=== PATIENT | female | born 1980 | race Caucasian/White ===

== ENCOUNTER 2020-09-14 08:15 | Observation (INO) ==
[2020-09-14] MEDS ORDERED: LACTATED RINGERS 1,000 ML IV ONE (08:24)
[2020-09-14] MEDS ORDERED: PANTOPRAZOLE 40 MG VIAL IV ONE (08:24)
[2020-09-14] MEDS ORDERED: OCTREOTIDE ACETATE 50 MCG/ML AMPUL IV ONE (08:24)
--- NOTE | 2020-09-14 08:33 | Emergency Department Note ---
HPI General Chief complaint: Bleeding Other Stated complaint: rectal bleeding Time Seen by Provider: 09/14/20 08:18 Source: patient Mode of arrival: ambulatory Limitations: no limitations History of Present Illness HPI Narrative: Narrative: 40 yo F w/ no PMH p/w bleeding for the past few days. She reports 2-3 days of hematemesis described as estefani blood and progressing to coffee grounds today. She has had around 3 episodes daily since onset. She additionally reports melanotic stools, a few episodes daily since yesterday. Bleeding is accompanied by weakness and lightheadedness, which prompted her to present today. She has never had similar episodes, but does endorse a h/o easy bruising, and binge drinking (~12 beers) each day on the weekend. She also notes that her mother required a hysterectomy for heavy vaginal bleeding. She herself has not had any vaginal or gum bleeding, or epistaxis. Related Data Home Medications Medication Instructions Recorded Confirmed No Known Home Meds 09/14/20 09/14/20 Allergies Allergy/AdvReac Type Severity Reaction Status Date / Time No Known Drug Allergies Allergy Verified 09/14/20 08:18 Review of Systems ROS ROS Narrative: Narrative: All systems ED: reviewed and negative except as stated. PFSH Narrative Patient History Narrative: Narrative: Medical/Surgical/Family History All Active Problems Sialoadenitis of submandibular gland (Acute) Pharyngitis (Acute) Ovarian cyst (Acute) Pelvic pain (Acute) Complex cyst of left ovary (Acute) Acute gastrointestinal bleeding (Acute) Acute upper gastrointestinal bleeding (Acute) Alcohol abuse (Acute) Medical History Pharyngitis Sialoadenitis of submandibular gland Family History Other Bleeding Social History Smoking Status: Current every day smoker Alcohol Intake Frequency: 2+ drinks per day (12 pack each day on the weekend) Substance Use: does not use Exam Narrative Narrative: Narrative: General Limitations: no limitations General appearance: Present alert and in no apparent distress Head Head: Present atraumatic and normocephalic Eye Eye: Present EOMI and other (pale conjunctiva) ENT ENT: Present normal oropharynx and mucous membranes moist Chest Chest: Present normal inspection and symmetric chest wall rise Respiratory Respiratory: Present normal lung sounds bilaterally; Absent respiratory distress and wheezes Cardiovascular Cardiovascular: Present normal rhythm, tachycardia, +S1 and +S2 Adbominal Abdominal: Present soft and normal bowel sounds; Absent distention and tenderness Extremities Extremities: Absent pedal edema Neurological Neurological: Present alert and oriented X3 Psychiatric Psychiatric: Present normal affect Skin Skin: Present warm (WNL) and dry Course Vital Signs Vital signs: Vital Signs Temperature 97.4 F 09/14/20 08:16 Pulse Rate 125 H 09/14/20 08:16 Respiratory Rate 16 09/14/20 08:16 Blood Pressure 142/86 09/14/20 08:16 Pulse Oximetry (%) 100 09/14/20 08:16 Temperature 97.7 F 09/14/20 16:00 Pulse Rate 80 09/14/20 16:00 Respiratory Rate 18 09/14/20 16:00 Blood Pressure 111/64 09/14/20 16:00 Pulse Oximetry (%) 99 09/14/20 16:00 MDM MDM Narrative Medical decision making narrative: Narrative: 40 yo F w/ h/o heavy ETOH use, easy bruising, p/w hematemesis and melanotic stools. DDx - hemorrhagic shock, variceal bleeding, gastritis, coagulopathy Pt presented w/ tachycardia, +shock index, but well appearing, w/ no active bleeding, in NAD. I did not feel that a shock state was truly present, but she was at risk. I started Tx immediately w/ 1L LR bolus, protonix, and octreotide. I proceeded w/ a W/U w/ CBC, CMP, coags. She was anemic, but clinically and bas ed on hgb did not require immediate transfusion. She was not coagulopathic based on PT, INR, PTT, but may need further W/U. She did not have ongoing bleeding. However, given her overall presentation, I was concerned for the potential for decompensation, and felt admission for endoscopy was indicated. Based on Hx, PE, and elevated BUN, suspect UGIB. Alcoholic gastritis seems more likely than varices but this will need endoscopy to determine. I d/w Dr Meeks w/ general surgery here, and he planned to admit pt to his service for endoscopy. Lab Data Lab results reviewed: Yes I reviewed the patient's lab results. Result diagrams: 09/14/20 08:39 09/14/20 08:39 Labs: Lab Results 09/14/20 09/14/20 09/14/20 Range/Units 08:39 08:39 08:39 WBC 8.1 (4.5-11.0) K/mcL RBC 2.24 L (4.00-5.20) M/mcL Hgb 8.2 L (12.0-15.0) g/dL Hct 23.6 L (36.0-48.0) % MCV 105.4 H (80.0-100.0) fL MCH 36.6 H (26.0-34.0) pg MCHC 34.7 (31.0-36.0) g/dL RDW 12.9 (11.5-14.5) % Plt Count 157 (140-440) K/mcL MPV 10.6 H (7.4-10.4) fL Neut % (Auto) 70.9 (38.0-78.0) % Lymph % (Auto) 22.6 (15.0-49.0) % Hudspeth % (Auto) 6.0 (1.0-12.0) % Eos % (Auto) 0.1 (0.0-7.0) % Baso % (Auto) 0.4 (0.0-2.0) % Lymph # (Auto) 1.83 (1.50-4.80) K/mcL Hudspeth # (Auto) 0.49 (0.10-0.90) K/mcL Eos # (Auto) 0.01 (0.00-0.70) K/mcL Baso # (Auto) 0.03 (0.00-0.20) K/mcL Absolute Neutrophils 5.75 (1.80-8.00) K/mcL POC PT 12.0 (11.9-14.5) sec PT 13.7 (11.9-14.5) sec POC INR 1.0 (0.8-1.2) INR 1.0 (0.9-1.1) VBG Lactic Acid (0.5-2.0) mmol/L Sodium 134 (133-145) mmol/L Potassium 3.7 (3.3-5.1) mmol/L Chloride 99 (96-108) mmol/L Carbon Dioxide 21 L (22-30) mmol/L Anion Gap 14.0 (8.0-16.0) BUN 41 H (6-20) mg/dL Creatinine 0.6 (0.6-1.1) mg/dL GFR Calculation 112 Glucose 137 H (70-105) mg/dL Calcium 8.0 L (8.6-10.4) mg/dL Total Bilirubin 0.8 (0.1-1.0) mg/dL AST 28 (<32) U/L ALT 33 (<40) U/L Alkaline Phosphatase 43 (39-117) U/L Total Protein 6.5 (5.9-8.4) gm/dL Albumin 3.8 (3.2-5.2) gm/dL Globulin 2.7 (2.2-3.7) gm/dL Albumin/Globulin Ratio 1.4 (1.0-2.3) Lipase 34 (7-60) U/L 09/14/20 Range/Units 08:39 WBC (4.5-11.0) K/mcL RBC (4.00-5.20) M/mcL Hgb (12.0-15.0) g/dL Hct (36.0-48.0) % MCV (80.0-100.0) fL MCH (26.0-34.0) pg MCHC (31.0-36.0) g/dL RDW (11.5-14.5) % Plt Count (140-440) K/mcL MPV (7.4-10.4) fL Neut % (Auto) (38.0-78.0) % Lymph % (Auto) (15.0-49.0) % Hudspeth % (Auto) (1.0-12.0) % Eos % (Auto) (0.0-7.0) % Baso % (Auto) (0.0-2.0) % Lymph # (Auto) (1.50-4.80) K/mcL Hudspeth # (Auto) (0.10-0.90) K/mcL Eos # (Auto) (0.00-0.70) K/mcL Baso # (Auto) (0.00-0.20) K/mcL Absolute Neutrophils (1.80-8.00) K/mcL POC PT (11.9-14.5) sec PT (11.9-14.5) sec POC INR (0.8-1.2) INR (0.9-1.1) VBG Lactic Acid 1.9 (0.5-2.0) mmol/L Sodium (133-145) mmol/L Potassium (3.3-5.1) mmol/L Chloride (96-108) mmol/L Carbon Dioxide (22-30) mmol/L Anion Gap (8.0-16.0) BUN (6-20) mg/dL Creatinine (0.6-1.1) mg/dL GFR Calculation Glucose (70-105) mg/dL Calcium (8.6-10.4) mg/dL Total Bilirubin (0.1-1.0) mg/dL AST (<32) U/L ALT (<40) U/L Alkaline Phosphatase (39-117) U/L Total Protein (5.9-8.4) gm/dL Albumin (3.2-5.2) gm/dL Globulin (2.2-3.7) gm/dL Albumin/Globulin Ratio (1.0-2.3) Lipase (7-60) U/L ED POC Tests ED POC Tests: NARINDER - SARS Antigen Negative HCG POC Results Negative Discharge Plan Patient/Caregiver Discharge Instructions Pt seen by LICENSED HOME INSPECTOR/PA only: No Clinical Impression: Acute gastrointestinal bleeding, Acute upper gastrointestinal bleeding, Alcohol abuse Patient Disposition: Xfer As Inpt ([facility]) Condition: Serious Discharge Date/Time: 09/14/20 12:15
[2020-09-14] MEDS ORDERED: OCTREOTIDE ACETATE 100 MCG/ML VIAL SQ ONE (09:00)
[2020-09-14 10:05] LABS: Basophils # (Auto) 0.03 K/mcL (0.00-0.20); Basophils % (Auto) 0.4 % (0.0-2.0); Eosinophils # (Auto) 0.01 K/mcL (0.00-0.70); Eosinophils % (Auto) 0.1 % (0.0-7.0); Hematocrit 23.6 % (36.0-48.0); Hemoglobin 8.2 g/dL (12.0-15.0); Lymphocytes # (Auto) 1.83 K/mcL (1.50-4.80); Lymphocytes % (Auto) 22.6 % (15.0-49.0); Mean Cell Volume 105.4 fL (80.0-100.0); Mean Corpuscular HGB Conc 34.7 g/dL (31.0-36.0); Mean Platelet Volume 10.6 fL (7.4-10.4); Monocytes # (Auto) 0.49 K/mcL (0.10-0.90); Neutrophils % (Auto) 70.9 % (38.0-78.0); Platelet Count 157 K/mcL (140-440); RBC 2.24 M/mcL (4.00-5.20); Red Cell Distribution Width 12.9 % (11.5-14.5); WBC 8.1 K/mcL (4.5-11.0)
[2020-09-14 10:17] LABS: ALT/SGPT 33 U/L (<40); AST/SGOT 28 U/L (<32); Albumin 3.8 gm/dL (3.2-5.2); Albumin/Globulin Ratio 1.4 (1.0-2.3); Alkaline Phosphatase 43 U/L (39-117); Bilirubin,Total 0.8 mg/dL (0.1-1.0); Blood Urea Nitrogen 41 mg/dL (6-20); Carbon Dioxide 21 mmol/L (22-30); Chloride 99 mmol/L (96-108); Globulin 2.7 gm/dL (2.2-3.7); Glomerular Filtration Rate 112; Glucose 137 mg/dL (70-105)
[2020-09-14 10:36] LABS: Prothrombin Time 13.7 sec (11.9-14.5)
[2020-09-14] MEDS ORDERED: KETAMINE 50 MG/ML ML IV PRN (11:59)
[2020-09-14] MEDS ORDERED: MIDAZOLAM 2 MG/2 ML VIAL IV SCH (12:00)
[2020-09-14] MEDS ORDERED: PROPOFOL 200 MG/20 ML VIAL IV SCH (12:00)
--- NOTE | 2020-09-14 13:06 | General Surg History&Physical ---
HPI History of Present Illness Patient information: Note initiated : 09/14/20 at 1:04 pm Service Date, if different from initiated Date: [] Patient: Rocio Del Real a 40 y/o F admitted on for EGD w/control of bleed, possible biopsies. Chief Complaint: [] Chief complaint: Hematemesis History of present illness: Ms. Del Real is a 40 year old F who presents with 1 day history of pain hematemesis and melanotic stools. She denies any prior history of similar sort of pains or problems. She started this morning with blo elmer emesis. She has no fevers chills nausea or diarrhea. She was seen in the emergency room where she has a decreased hemoglobin and hematocrit. Review of Systems Review of systems: All systems are reviewed, negative other than above PFSH PFSH All Active Problems Sialoadenitis of submandibular gland (Acute) Pharyngitis (Acute) Ovarian cyst (Acute) Pelvic pain (Acute) Complex cyst of left ovary (Acute) Acute gastrointestinal bleeding (Acute) Acute upper gastrointestinal bleeding (Acute) Alcohol abuse (Acute) Medical History Pharyngitis Sialoadenitis of submandibular gland Family History Other Bleeding Social History (Updated 06/28/18 @ 20:12 by Hortencia Felton PA-C) alcohol intake frequency: 2+ drinks per day (12 pack each day on the weekend) substance use type: does not use MEDS/ALLERGIES Home Medications and Allergies Home Medications Medication Instructions Recorded Confirmed Type No Known Home Meds 09/14/20 09/14/20 History Allergies Allergy/AdvReac Type Severity Reaction Status Date / Time No Known Drug Allergies Allergy Verified 09/14/20 08:18 Physical Examination Vital Signs Vital signs: Temp Pulse Resp BP Pulse Ox 97.4 F 93 H 17 120/73 100 09/14/20 11:59 09/14/20 11:59 09/14/20 11:59 09/14/20 11:59 09/14/20 11:59 General physical appearance General physical exam: well developed, well nourished and no distress Eyes Eye exam: PERRL and normal ocular movement ENT ENT exam: normal pinna, normal nares, normal mucosa, no hearing loss and no congestion Head Head exam IM: Present atraumatic and normocephalic Neck Neck exam: no masses, no bruits, trachea midline, no lymphadenopathy and no venous distension Cardiovascular Cardiovascular exam IM: Present normal rate and rhythm Respiratory Respiratory exam: normal expansion, normal respiratory effort, clear to percussion and clear to auscultation Abdomen Abdomen: Present soft, non tender and bowel sounds Hernia: Present none Genitourinary Genitourinary (Female): Present normal external genitalia Rectum Rectum: Present normal sphincter tone, no hemorrhoids, no tenderness, no masses and no bleeding Integumentary Integumentary: Present no rash, no growths and no abnormal pigmentation Neurologic Neurologic: Present normal coordination and normal sensation Musculoskeletal Musculoskeletal: Present normal gait and normal posture Psychiatric Psychiatric: Present oriented to time, oriented to person, oriented to place, speech is normal and memory intact Results Labs Result diagrams: 09/14/20 08:39 09/14/20 08:39 Labs: Abnormal lab results 09/14/20 09/14/20 Range/Units 08:39 08:39 RBC 2.24 L (4.00-5.20) M/mcL Hgb 8.2 L (12.0-15.0) g/dL Hct 23.6 L (36.0-48.0) % MCV 105.4 H (80.0-100.0) fL MCH 36.6 H (26.0-34.0) pg MPV 10.6 H (7.4-10.4) fL Carbon Dioxide 21 L (22-30) mmol/L BUN 41 H (6-20) mg/dL Glucose 137 H (70-105) mg/dL Calcium 8.0 L (8.6-10.4) mg/dL Diabetes panel 09/14/20 Range/Units 08:39 Sodium 134 (133-145) mmol/L Potassium 3.7 (3.3-5.1) mmol/L Chloride 99 (96-108) mmol/L Carbon Dioxide 21 L (22-30) mmol/L BUN 41 H (6-20) mg/dL Creatinine 0.6 (0.6-1.1) mg/dL Glucose 137 H (70-105) mg/dL Calcium 8.0 L (8.6-10.4) mg/dL AST 28 (<32) U/L ALT 33 (<40) U/L Alkaline Phosphatase 43 (39-117) U/L Total Protein 6.5 (5.9-8.4) gm/dL Albumin 3.8 (3.2-5.2) gm/dL Calcium panel 09/14/20 Range/Units 08:39 Calcium 8.0 L (8.6-10.4) mg/dL Albumin 3.8 (3.2-5.2) gm/dL Pituitary panel 09/14/20 Range/Units 08:39 Sodium 134 (133-145) mmol/L Potassium 3.7 (3.3-5.1) mmol/L Chloride 99 (96-108) mmol/L Carbon Dioxide 21 L (22-30) mmol/L BUN 41 H (6-20) mg/dL Creatinine 0.6 (0.6-1.1) mg/dL Glucose 137 H (70-105) mg/dL Calcium 8.0 L (8.6-10.4) mg/dL Adrenal panel 09/14/20 Range/Units 08:39 Sodium 134 (133-145) mmol/L Potassium 3.7 (3.3-5.1) mmol/L Chloride 99 (96-108) mmol/L Carbon Dioxide 21 L (22-30) mmol/L BUN 41 H (6-20) mg/dL Creatinine 0.6 (0.6-1.1) mg/dL Glucose 137 H (70-105) mg/dL Calcium 8.0 L (8.6-10.4) mg/dL Total Bilirubin 0.8 (0.1-1.0) mg/dL AST 28 (<32) U/L ALT 33 (<40) U/L Alkaline Phosphatase 43 (39-117) U/L Total Protein 6.5 (5.9-8.4) gm/dL Albumin 3.8 (3.2-5.2) gm/dL All other labs normal. A/P Assessment and plan (1) Acute gastrointestinal bleeding: Status: Acute Narrative A/P Narrative: This is a pleasant 40-year-old female without prior significant medical history who presents with what appears to be an upper GI bleed. Risk, benefits, alternatives to discussed with her at length including alternatives. She verbalizes understanding and desires to agree. Plan: EGD, observation post EGD based on pending results. Time Spent With Patient Time: Total time spent is greater than 50% in coordination of care (as documented) at patient's floor/unit and/or counseling patient:
[2020-09-14] MEDS ORDERED: ACETAMINOPHEN 325 MG TABLET PO PRN (13:22)
[2020-09-14] MEDS ORDERED: ONDANSETRON 4 MG/2 ML VIAL IV PRN (13:22)
--- NOTE | 2020-09-14 13:22 | EGD Procedure Note ---
EGD Procedure Notes Procedure Information Patient information: Note initiated : 09/14/20 at 1:20 pm Service Date: Patient: Rocio Del Real 40 y/o F admitted on for EGD w/control of bleed, possible biopsies. Pre-op diagnosis general: Upper GI bleed Post-Op Diagnosis general: Same, small antral ulcer, diffuse gastritis Procedure: Esophogogastroduodenoscopy Procedure Narrative: After risk benefits and alternatives to the procedure were discussed with the patient at length she verbalized understanding and desire to continue with the procedure. Patient was taken to endoscopy. Surgical timeout was taken to verify patient and procedure being performed sedation was administered with 2 mg of Versed and 200 mcg of propofol. An adult gastroscope was entered and advanced under direct vision into the second portion of the duodenum. The antrum was fully inspected, the scope was retroflexed in the stomach. Full examination revealed normal duodenum, small antral ulcer, diffuse gastritis. The GE junction was at 35 cm and the esophagus was normal on full exam. Patient tolerated procedure well. Assessment: Diffuse gastritis, small antral ulcer
[2020-09-14] MEDS: 0.9 % SODIUM CHLORIDE 10 ML SYRINGE IV SCH ×2 (15:17→20:27)
[2020-09-14] MEDS: DEXTROSE 5%-1/2NS 1,000 ML IV SCH (16:03)
[2020-09-14] MEDS: DOCUSATE SODIUM 100 MG CAPSULE PO SCH (20:27)
[2020-09-14] MEDS ORDERED: SENNOSIDES 1 TABLET PO SCH (21:00)
[2020-09-15] MEDS: DEXTROSE 5%-1/2NS 1,000 ML IV SCH ×2 (01:21→09:59)
[2020-09-15] MEDS: 0.9 % SODIUM CHLORIDE 10 ML SYRINGE IV SCH (04:46)
[2020-09-15] MEDS: PANTOPRAZOLE 40 MG TABLET PO SCH (07:03)
[2020-09-15 07:24] LABS: Basophils # (Auto) 0.03 K/mcL (0.00-0.20); Basophils % (Auto) 0.5 % (0.0-2.0); Eosinophils # (Auto) 0.05 K/mcL (0.00-0.70); Eosinophils % (Auto) 0.8 % (0.0-7.0); Hematocrit 19.2 % (36.0-48.0); Hemoglobin 6.5 g/dL (12.0-15.0); Lymphocytes # (Auto) 1.95 K/mcL (1.50-4.80); Lymphocytes % (Auto) 31.3 % (15.0-49.0); Mean Cell Volume 105.5 fL (80.0-100.0); Mean Corpuscular HGB Conc 33.9 g/dL (31.0-36.0); Mean Platelet Volume 10.4 fL (7.4-10.4); Monocytes # (Auto) 0.38 K/mcL (0.10-0.90); Monocytes % (Auto) 6.1 % (1.0-12.0); Neutrophils % (Auto) 61.3 % (38.0-78.0); Platelet Count 125 K/mcL (140-440); RBC 1.82 M/mcL (4.00-5.20); Red Cell Distribution Width 13.2 % (11.5-14.5); WBC 6.2 K/mcL (4.5-11.0)
[2020-09-15] MEDS ORDERED: 0.9 % SODIUM CHLORIDE 250 ML IV SCH (08:00)
[2020-09-15] MEDS: DOCUSATE SODIUM 100 MG CAPSULE PO SCH (08:55)
--- NOTE | 2020-09-15 11:14 | General Surgery Progress Note ---
SUBJECTIVE Subjective Patient information: Note initiated : 09/15/20 at 11:12 am Service Date, if different from initiated Date: [] Patient: Rocio Del Real 40 y/o F admitted on 09/14/20 for EGD w/control of bleed, possible biopsies. Chief Complaint: [] Interval history: Hospital day #1 for upper GI bleed. Status post EGD yesterday with diffuse gastritis, patient has been started on an acid treatment. H&H this morning dropped to 6.5. Patient reports feeling less dizzy than when she came in. Constitutional Vitals: Vital Signs Temp Pulse Resp BP Pulse Ox 98.8 F 87 18 87/54 99 09/15/20 07:42 09/15/20 07:42 09/15/20 07:51 09/15/20 07:42 09/15/20 07:42 Period Temp Pulse Resp BP Sys/Chauhan Pulse Ox Last 24 Hr 97.4 F-99.0 F 64-124 12-20 87-140/54-104 98-100 Intake and Output 09/14/20 09/15/20 09/15/20 21:59 05:59 13:59 Intake Total 200 300 Balance 200 300 Weight 165 lb Intake & Output: Intake & Output 09/14/20 09/15/20 09/15/20 21:59 05:59 13:59 Intake Total 200 300 Balance 200 300 Weight 165 lb Intake: Oral 200 300 Other: # Voids 1 3 General appearance: cooperative and no acute distress GI/Abdominal GI/Abdominal exam: Present soft; Absent distended, guarding, rebound and tenderness A/P Narrative A/P Narrative: Patient mated for upper GI bleed, no active bleed found on endoscopy. We will give 1 unit packed RBCs, follow-up with H&H. If stable may be able to be discharged today versus tomorrow. Time Spent With Patient Time: Total time spent is greater than 50% in coordination of care (as documented) at patient's floor/unit and/or counseling patient:
[2020-09-15 19:48] LABS: Hemoglobin 7.3 g/dL (12.0-15.0)
[2020-09-16] MEDS: PANTOPRAZOLE 40 MG TABLET PO SCH (06:44)
[2020-09-16 08:14] LABS: Basophils # (Auto) 0.03 K/mcL (0.00-0.20); Basophils % (Auto) 0.5 % (0.0-2.0); Eosinophils # (Auto) 0.06 K/mcL (0.00-0.70); Hematocrit 22.2 % (36.0-48.0); Hemoglobin 7.6 g/dL (12.0-15.0); Lymphocytes # (Auto) 2.19 K/mcL (1.50-4.80); Lymphocytes % (Auto) 35.2 % (15.0-49.0); Mean Cell Volume 100.5 fL (80.0-100.0); Mean Corpuscular HGB Conc 34.2 g/dL (31.0-36.0); Monocytes # (Auto) 0.39 K/mcL (0.10-0.90); Monocytes % (Auto) 6.3 % (1.0-12.0); Platelet Count 116 K/mcL (140-440); RBC 2.21 M/mcL (4.00-5.20); WBC 6.2 K/mcL (4.5-11.0)
[2020-09-16 08:27] LABS: Blood Urea Nitrogen 9 mg/dL (6-20); Calcium 8.2 mg/dL (8.6-10.4); Carbon Dioxide 25 mmol/L (22-30); Chloride 104 mmol/L (96-108); Glomerular Filtration Rate 119; Glucose 85 mg/dL (70-105)
--- NOTE | 2020-09-16 09:56 | Discharge Summary ---
Discharge Provider Provider Patient information: Note initiated : 09/16/20 at 9:55 am Service Date, if different from initiated Date: [] Patient: Rocio Del Real 40 y/o F admitted on 09/14/20 for EGD w/control of bleed, possible biopsies. Chief Complaint: [] Date of admission: 09/14/20 12:05 Discharge date: 09/16/20 Primary care physician: PCP Pham Consults: 09/14/20 11:14 Consult to Physician [CONS] Stat Comment: Consulting Provider: Rios Meeks Reason For Exam: Physician to Consult COURSE Hospital Course Hospital course: Patient admitted for upper GI bleed, underwent upper endoscopy which was significant for erosive gastritis. She was treated with Protonix, received 1 unit of packed RBCs and then her H&H stabilized without further evidence of bleed Discharge diagnosis: Upper GI bleed Time Spent with Patient Time attestation: Total time spent providing and/or coordinating discharge services: Physical Examination Vital Signs Vital signs: Temp Pulse Resp BP Pulse Ox 97.7 F 79 18 122/80 99 09/16/20 07:25 09/16/20 07:25 09/16/20 07:25 09/16/20 07:25 09/16/20 07:25 Discharge Plan Patient/Caregiver Discharge Instructions Activity: as per physical therapy Diet: Regular Diet Activity Restrictions/Additional Instructions: Admitted to Dr Meeks Follow-up with me in 2 to 3 weeks. Activity, diet as tolerated Prescriptions: New omeprazole 20 mg capsule,delayed release(DR/EC) 20 mg PO BID Qty: 60 RF: 0 No Action No Known Home Meds RF: 0 Follow Up Plan Follow up with: Pham,PCP [Primary Care Provider] - Patient Disposition: Home, Self-Care Prognosis: Serious Discharge Orders: Discharge Order (Routine); Ordered 09/16/20 Ordered By: Rios Meeks Pending Pending Pending: Resuscitation Status Full Code Diet Regular Diet Start SatSep 14 132 Pantoprazole Sodium (Pantoprazole 40 Mg Tablet) 40 mg PO QAMAC TERRANCE Last Admin: 09/16/20 06:44 Dose: 40 mg Documented by: Admin: 09/15/20 07:03 Dose: 40 mg Documented by: EVELINE Shift Summary 09/16/20 04:12 Shift Summary by Lorenza Bear Diagnosis: 40 year old F who presents with 1 day history of pain hematemesis and melanotic stools. She denies any prior history of similar sort of pains or problems. She started this morning with bloody emesis. She has no fevers chills nausea or diarrhea. She was seen in the emergency room where she has a decreased hemoglobin and hematocrit. EGD done 09/14 showed sm antral ulcer & diffuse gastritis. Brief history of present illness: Heavy ETOH use on weekends. Orientation: A&OX4 Ambulation status: Independent in . Voiding: toilet IV access:SL to the LAC Pain: No C/O pain or discomfort Discharge plans: Return home when medically cleared. Additional Comments: Pt had an H7H of 6.5 and 19.2. she received a unit of PRBC, repeat HH 7.3/21.0. MD called and he wanted patient to stay the night and have labs ordered in a.m. and if HH has come up will discharge. Initialized on 09/16/20 04:12 - END OF NOTE
== END 2020-09-16 12:07 | disposition home or self-care (01) ==
LOC: ED 08:15 → MEDSUR 08:15 → SUR 12:05 → SSSU 12:05 → SUR 12:15 → MEDSUR 13:45
PROVIDERS: ADMIT Surgery; ATTEND Surgery